=== PATIENT | female | born 1960 ===

== ENCOUNTER 2017-05-23 11:25 | Outpatient (CLI) | payer BC ==
--- NOTE | 2017-05-23 14:59 | Diagnostic Imaging Report ---
Indication: Cough Technique: 2 views of the chest Comparison: 11/25/2013 Findings: Lungs and pleural spaces are clear. The heart size is normal. The bones are unremarkable. No significant interim change. Impression: Negative
== END 2017-05-23 13:25 | disposition home or self-care (01) ==
LOC: RAD 11:25
DX: R05 Cough (principal); I10 Essential (primary) hypertension
CPT/HCPCS: 71046